=== PATIENT | female | born 1945 | race Caucasian/White ===

== ENCOUNTER → 2016-05-11 | Outpatient (CLI) | payer OTHER ==
[~2016-05-11] MED LIST: BONIVA1 MG/ML MR; CALCIUM PLUS1 TA1 PO; SYNTHROID 0.10.15 MG PO; SYNTHROID0.1 MG/TAB PO
[2016-05-11 11:49] LABS: HEMOGLOBIN 12.9 g/dl (12.5-16.0)
[2016-05-11 11:51] LABS: HEMATOCRIT 39.4 % (37.0-47.0)
== END ==
LOC: COL.LAB 04-13 13:16
PROVIDERS: Internal Medicine
DX: E83.110 Hereditary hemochromatosis (principal)

== ENCOUNTER → 2016-07-20 | Outpatient (CLI) | payer OTHER ==
[2016-07-20 13:48] LABS: HEMOGLOBIN 12.6 g/dl (12.5-16.0)
[2016-07-20 13:51] LABS: HEMATOCRIT 39.1 % (37.0-47.0)
[2016-07-20 14:22] LABS: TOTAL IRON BINDING CAPACITY 250 ug/dL (265-497)
[2016-07-20 15:02] LABS: FERRITIN 8 ng/mL (11-264)
== END ==
LOC: COL.LAB 13:08
PROVIDERS: Internal Medicine
DX: E83.118 Other hemochromatosis (principal)

== ENCOUNTER → 2016-12-06 | Outpatient (CLI) | payer OTHER ==
[2016-12-06 15:33] LABS: HEMOGLOBIN 14.8 g/dl (12.5-16.0)
[2016-12-06 15:41] LABS: HEMATOCRIT 42.7 % (37.0-47.0)
== END ==
LOC: COL.LAB 09-21 13:34
PROVIDERS: Internal Medicine
DX: E83.119 Hemochromatosis, unspecified (principal)

== ENCOUNTER → 2017-01-24 | Outpatient (CLI) | payer OTHER ==
[2017-01-24 09:25] LABS: HEMOGLOBIN 13.6 g/dl (12.5-16.0)
[2017-01-24 09:27] LABS: HEMATOCRIT 40.8 % (37.0-47.0)
== END ==
LOC: COL.LAB 08:58
PROVIDERS: Internal Medicine
DX: E83.110 Hereditary hemochromatosis (principal)

== ENCOUNTER → 2017-03-14 | Outpatient (CLI) | payer OTHER ==
[2017-03-14 14:39] LABS: HEMOGLOBIN 13.3 g/dl (12.5-16.0)
[2017-03-14 14:41] LABS: HEMATOCRIT 40.5 % (37.0-47.0)
== END ==
LOC: COL.LAB 03-07 15:40
PROVIDERS: Internal Medicine
DX: E83.110 Hereditary hemochromatosis (principal)

== ENCOUNTER → 2017-04-25 | Outpatient (CLI) | payer OTHER ==
[2017-04-25 15:35] LABS: HEMOGLOBIN 13.3 g/dl (12.5-16.0)
[2017-04-25 15:38] LABS: HEMATOCRIT 40.8 % (37.0-47.0)
== END ==
LOC: COL.LAB 12:33
PROVIDERS: Internal Medicine
DX: E83.110 Hereditary hemochromatosis (principal)

== ENCOUNTER → 2017-05-07 | Outpatient (REF) ==
[2017-05-07 19:02] LABS: THYROID STIMULATING HORMONE 0.045 uIU/mL (0.465-4.680)
== END ==
LOC: ZLAB.WCH 18:19
PROVIDERS: Internal Medicine
DX: Z01.89 Encounter for other specified special examinations (principal)

== ENCOUNTER → 2017-05-30 | Outpatient (CLI) | payer OTHER ==
[2017-05-30 13:46] LABS: HEMOGLOBIN 11.7 g/dl (12.5-16.0)
[2017-05-30 13:49] LABS: HEMATOCRIT 36.8 % (37.0-47.0)
== END ==
LOC: COL.LAB 13:12
PROVIDERS: Internal Medicine
DX: E83.119 Hemochromatosis, unspecified (principal); Z88.1 Allergy status to other antibiotic agents

== ENCOUNTER → 2017-06-29 | Outpatient (CLI) | payer MEDICARE ==
[2017-06-29 12:22] LABS: THYROXINE (T4)-TOTAL 12.6 ug/dL (5.5-11.0)
[2017-06-29 12:36] LABS: THYROID STIMULATING HORMONE 0.039 uIU/mL (0.465-4.680)
== END ==
LOC: COL.LAB 10:47
PROVIDERS: Internal Medicine
DX: E03.4 Atrophy of thyroid (acquired) (principal)

== ENCOUNTER → 2017-07-09 | Outpatient (CLI) | payer OTHER | LOC: MC.RAD 10:40 | DX: Z12.31 Encounter for screening mammogram for malignant neoplasm of breast (principal); M81.0 Age-related osteoporosis without current pathological fracture ==

== ENCOUNTER → 2017-08-28 | Outpatient (CLI) | payer OTHER ==
[2017-08-28 11:26] LABS: THYROID STIMULATING HORMONE 0.145 uIU/mL (0.465-4.680)
== END ==
LOC: COL.LAB 09:46
PROVIDERS: Internal Medicine
DX: E03.4 Atrophy of thyroid (acquired) (principal)

== ENCOUNTER → 2017-09-05 | Outpatient (CLI) | payer OTHER ==
[2017-09-05 14:46] LABS: HEMOGLOBIN 12.1 g/dl (12.5-16.0)
[2017-09-05 15:07] LABS: IRON,SERUM 44 ug/dL (35-150)
[2017-09-05 15:16] LABS: TOTAL IRON BINDING CAPACITY 271 ug/dL (265-497)
[2017-09-05 15:41] LABS: FERRITIN 9 ng/mL (11-264)
== END ==
LOC: COL.LAB 07-11 11:45
PROVIDERS: Internal Medicine
DX: E83.110 Hereditary hemochromatosis (principal)

== ENCOUNTER → 2017-11-07 | Outpatient (CLI) | payer MEDICARE ==
[2017-11-07 18:12] LABS: THYROID STIMULATING HORMONE 0.723 uIU/mL (0.465-4.680)
== END ==
LOC: COL.LAB 16:46
PROVIDERS: Internal Medicine
DX: E83.110 Hereditary hemochromatosis (principal); E03.4 Atrophy of thyroid (acquired)

== ENCOUNTER → 2017-12-05 | Outpatient (CLI) | payer MEDICARE | LOC: COL.LAB 10-17 17:58 | DX: E83.110 Hereditary hemochromatosis (principal) ==

== ENCOUNTER → 2018-01-02 | Outpatient (REF) | LOC: ZLAB.WCH 08:44 | DX: Z01.89 Encounter for other specified special examinations (principal) ==

== ENCOUNTER → 2018-02-12 | Outpatient (REF) | LOC: ZLAB.WCH 16:55 | DX: Z01.89 Encounter for other specified special examinations (principal) ==

== ENCOUNTER → 2018-04-16 | Outpatient (REF) ==
[2018-04-16 18:22] LABS: THYROID STIMULATING HORMONE 0.422 uIU/mL (0.465-4.680)
== END ==
LOC: ZLAB.WCH 17:05
PROVIDERS: Internal Medicine
DX: Z01.89 Encounter for other specified special examinations (principal)

== ENCOUNTER → 2018-06-07 | Outpatient (REF) ==
[2018-06-07 20:05] LABS: THYROID STIMULATING HORMONE 1.63 uIU/mL (0.465-4.680)
== END ==
LOC: ZLAB.WCH 19:16
PROVIDERS: Internal Medicine
DX: Z01.89 Encounter for other specified special examinations (principal)

== ENCOUNTER → 2018-07-24 | Outpatient (REF) ==
[2018-07-24 09:57] LABS: IRON,SERUM 76 ug/dL (35-150)
[2018-07-24 10:06] LABS: TOTAL IRON BINDING CAPACITY 256 ug/dL (265-497)
[2018-07-24 10:33] LABS: FERRITIN 9 ng/mL (11-264)
== END ==
LOC: ZLAB.WCH 09:41
PROVIDERS: Internal Medicine
DX: Z01.89 Encounter for other specified special examinations (principal)

== ENCOUNTER 2018-11-23 18:13 | Emergency (ER) | payer MEDICARE ==
[~2018-11-23] VITALS: Ht 172.7 cm; Wt 83.2 kg
[2018-11-23 18:22] VITALS: TEMP 98.4
[2018-11-23] MEDS ORDERED: NORCO 325 MG-51 TAB PO (20:10)
[2018-11-23 20:31] VITALS: BP 168/68; PULSE 62
== END 2018-11-23 20:41 | disposition home or self-care (01) ==
LOC: COL.ER 18:13
DX: S59.901A Unspecified injury of right elbow, initial encounter (principal); S52.101A Unspecified fracture of upper end of right radius, initial encounter for closed fracture; S52.001A Unspecified fracture of upper end of right ulna, initial encounter for closed fracture; Z23 Encounter for immunization; W19.XXXA Unspecified fall, initial encounter; Y92.009 Unspecified place in unspecified non-institutional (private) residence as the place of occurrence of the external cause
CPT/HCPCS: J2405; J3010; Q4050

== ENCOUNTER → 2018-12-02 | Outpatient (CLI) | payer MEDICARE ==
[~2018-12-02] MED LIST changes: +NORCO 325 MG-51 TAB PO
== END ==
LOC: COL.RAD 15:00
DX: S52.501A Unspecified fracture of the lower end of right radius, initial encounter for closed fracture (principal); S52.601A Unspecified fracture of lower end of right ulna, initial encounter for closed fracture

== ENCOUNTER 2019-02-01 08:32 | Outpatient (RCR) | payer MEDICARE ==
[2019-01-10 09:40] VITALS: BP 181/89; PULSE 79; TEMP 97.7
--- NOTE | 2019-01-10 09:45 | NUR ---
patient in the express unit. Patient has a PICC in her left upper arm. Dressing dated 01/06. Patient reported PICC placed when she was a patient in [place]. with sterile technique left upper arm PICC dressing change done with insertion site cleansed with ChloraPrep 1, chlorhexidine impregnated disc applied, skin prep, StatLock, and Tegaderm applied. No signs or symptoms of IV complications noted. No concerns voiced. Arm wrapped with Williams to protect catheter. Patient is receiving outpatient IV antibiotics in the express unit. We'll continue to monitor PICC.
[2019-01-11 08:30] VITALS: BP 172/93; PULSE 86; TEMP 98.1
[2019-01-12 08:34] VITALS: BP 150/86; PULSE 94; TEMP 97.6
[2019-01-13 09:32] VITALS: BP 154/76; PULSE 80; TEMP 98.1
[2019-01-13 09:52] LABS: BASO % 0.7 % (0.0-2.0); EOS # 0.2 (0.0-0.7); EOS % 4.1 % (0-4.0); GRAN # 3.8 (1.4-6.5); GRAN % 67.2 % (42.2-75.2); LYMPH # 1.1 (1.2-3.4); LYMPH % 19.6 % (20.0-51.0); MEAN CELL VOLUME 86 fl (80.0-100.0); MEAN CORPUSCULAR HGB CONC 32 g/dl (33.0-37.0); MEAN PLATELET VOLUME 9.7 fl (7.4-10.4); MONO # 0.5 (0.1-0.6); PLATELET COUNT 233 K/mm3 (130-400); REDCELL DISTRIBUTION WIDTH-CV 15.5 % (11.5-14.5)
[2019-01-13 09:57] LABS: ALBUMIN 3.5 gm/dL (3.5-5.0); BILIRUBIN,TOTAL 0.1 mg/dL (0.0-1.0); C-REACTIVE PROTEIN 2.3 mg/dL (0.0-0.9); CALCIUM 9.4 mg/dL (8.4-10.2); CREATININE, serum 0.6 (0.52-1.25); POTASSIUM 4.3 mmol/L (3.4-5.0)
[2019-01-13 10:23] LABS: HEMATOCRIT 29.2 % (37.0-47.0); HEMOGLOBIN 9.3 g/dl (12.5-16.0); MEAN CORPUSCULAR HEMOGLOBIN 27 pg (27.0-31.0)
[2019-01-13 10:43] LABS: ERYTHROCYTE SEDIMENTATION RATE 90 mm/hr (0-30)
[2019-01-14 08:30] VITALS: BP 173/90; PULSE 83; TEMP 98.2
[2019-01-15 09:06] VITALS: BP 152/91; PULSE 80; TEMP 97.6
[2019-01-16 08:21] VITALS: BP 150/92; PULSE 83; TEMP 97.5
[2019-01-17 08:15] VITALS: BP 173/91; PULSE 79; TEMP 97.5
--- NOTE | 2019-01-17 08:15 | NUR ---
PICC intact left upper arm with sterile dressing change with insertion site cleansed with chloraprep x 1, chlorhexidine impregnated disk applied, skin prep, stat lock, and tegaderm applied. no signs or symptoms of IV complications noted. no concerns voiced. re-wrapped with merle to protect catheter.
[2019-01-18 08:15] VITALS: BP 166/83; PULSE 80; TEMP 97.6
[2019-01-19 09:36] VITALS: BP 152/84; PULSE 86; TEMP 97.4
[2019-01-20 06:30] VITALS: BP 172/91; PULSE 75; TEMP 97.9
[2019-01-20 07:11] LABS: BASO # 0.1 (0.0-0.2); BASO % 1.1 % (0.0-2.0); EOS # 0.3 (0.0-0.7); EOS % 5.6 % (0-4.0); GRAN # 3.7 (1.4-6.5); GRAN % 64.2 % (42.2-75.2); LYMPH # 1.3 (1.2-3.4); MEAN CELL VOLUME 86 fl (80.0-100.0); MEAN CORPUSCULAR HGB CONC 31 g/dl (33.0-37.0); MEAN PLATELET VOLUME 9.9 fl (7.4-10.4); MONO # 0.4 (0.1-0.6); MONO % 6.7 % (1.7-9.3); PLATELET COUNT 250 K/mm3 (130-400); RED BLOOD COUNT 3.61 M/mm3 (4.10-5.30)
[2019-01-20 07:15] LABS: HEMATOCRIT 31.2 % (37.0-47.0); HEMOGLOBIN 9.8 g/dl (12.5-16.0); MEAN CORPUSCULAR HEMOGLOBIN 27 pg (27.0-31.0)
[2019-01-20 07:21] LABS: ALANINE AMINOTRANSFERASE 31 U/L (9-52); ALBUMIN 3.6 gm/dL (3.5-5.0); ALKALINE PHOSPHATASE 141 U/L (50-136); ANION GAP 8 mmol/L (7-16); AST,SGOT 23 U/L (15-37); BILIRUBIN,TOTAL 0.2 mg/dL (0.0-1.0); BLOOD UREA NITROGEN 13 mg/dL (7-17); CALCIUM 9.7 mg/dL (8.4-10.2); CARBON DIOXIDE 27 mmol/L (22-30); CHLORIDE 101 mmol/L (98-107); CREATININE, serum 0.54 (0.52-1.25); GLUCOSE 118 mg/dL (74-106); POTASSIUM 4.2 mmol/L (3.4-5.0); SODIUM 137 mmol/L (137-145); TOTAL PROTEIN 6.9 gm/dL (6.4-8.2)
[2019-01-20 07:25] LABS: C-REACTIVE PROTEIN 1.5 mg/dL (0.0-0.9)
[2019-01-20 07:44] LABS: ERYTHROCYTE SEDIMENTATION RATE 73 mm/hr (0-30)
[2019-01-20 07:52] LABS: VANCOMYCIN TROUGH < 5.00 ug/mL (7.00-20.00)
--- NOTE | 2019-01-20 17:29 | NUR ---
Pt's had asked this am about having dressing change incorporated into pt's care while at express for antibiotics. I called pt to address this... I informed Grecia that we could do her daily dressing change provided it was a simple dressing change, and that we would need a physician order. Pt reports she will be seeing her orthopedic surgeon tomorrow, and will discuss with her and the surgeon tomorrow.
[2019-01-21 08:33] VITALS: BP 166/84; PULSE 85; TEMP 97.6
[2019-01-22 08:21] VITALS: BP 166/89; PULSE 85; TEMP 98.1
[2019-01-23 08:30] VITALS: BP 168/97; PULSE 84; TEMP 97.4
[2019-01-24 08:29] VITALS: BP 155/85; PULSE 78; TEMP 97.8
--- NOTE | 2019-01-24 08:40 | NUR ---
PICC intact left upper arm. With sterile technique left upper arm PICC dressing changes done with insertion site cleansed with ChloraPrep 1, chlorhexidine impregnated disc applied, skin prep, StatLock, and Tegaderm applied. No signs or symptoms of IV complications noted. No concerns voiced. Patient to continue with [facility] unit.
[2019-01-25 08:30] VITALS: BP 157/81; PULSE 82; TEMP 98.2
[2019-01-26 08:36] VITALS: BP 165/80; PULSE 81; TEMP 98.3
[2019-01-27 08:38] VITALS: BP 164/88; PULSE 87; TEMP 98.2
[2019-01-27 08:53] LABS: BASO # 0.1 (0.0-0.2); BASO % 0.7 % (0.0-2.0); EOS # 0.4 (0.0-0.7); EOS % 5.3 % (0-4.0); GRAN # 5.2 (1.4-6.5); GRAN % 67.9 % (42.2-75.2); LYMPH # 1.4 (1.2-3.4); LYMPH % 18.2 % (20.0-51.0); MEAN CELL VOLUME 83 fl (80.0-100.0); MEAN CORPUSCULAR HGB CONC 32 g/dl (33.0-37.0); MEAN PLATELET VOLUME 9.7 fl (7.4-10.4); MONO # 0.6 (0.1-0.6); MONO % 7.5 % (1.7-9.3); PLATELET COUNT 243 K/mm3 (130-400); RED BLOOD COUNT 3.71 M/mm3 (4.10-5.30); REDCELL DISTRIBUTION WIDTH-CV 14.9 % (11.5-14.5)
[2019-01-27 09:20] LABS: ALBUMIN 3.9 gm/dL (3.5-5.0); BILIRUBIN,TOTAL 0.1 mg/dL (0.0-1.0); CALCIUM 9.8 mg/dL (8.4-10.2); CREATININE, serum 0.55 (0.52-1.25); POTASSIUM 3.9 mmol/L (3.4-5.0); TOTAL PROTEIN 7.8 gm/dL (6.4-8.2)
[2019-01-27 09:24] LABS: HEMATOCRIT 30.9 % (37.0-47.0); HEMOGLOBIN 9.8 g/dl (12.5-16.0); MEAN CORPUSCULAR HEMOGLOBIN 26 pg (27.0-31.0)
[2019-01-27 09:55] LABS: ERYTHROCYTE SEDIMENTATION RATE 59 mm/hr (0-30)
[2019-01-28 08:28] VITALS: BP 170/77; PULSE 73; TEMP 98.1
[2019-01-29 08:30] VITALS: BP 176/85; PULSE 84; TEMP 98.2
--- NOTE | 2019-01-29 08:30 | NUR ---
reported by primary care nurse unable to obtain blood return from left upper arm PICC. Left upper arm PICC intact. Flushed both ports with 30 mL normal saline without difficulty or resistance with no blood return noted. Attempted arm manipulation and coughing technique without success. Chest x-ray done. Catheter tip location noted in upper SVC. Risk versus benefit of sterile exchange contemplated. Due to the fact the patient only has 2-3 weeks of IV antibiotics left we will leave tip location as is for now. We'll continue to monitor. Primary care nurse informed.
[2019-01-30 08:21] VITALS: BP 160/69; PULSE 89; TEMP 97.4
--- NOTE | 2019-01-31 08:30 | NUR ---
PICC intact left upper arm. With sterile technique left upper arm PICC dressing change done with insertion site cleansed with ChloraPrep 1, chlorhexidine impregnated disc applied, skin prep, StatLock, and Tegaderm applied. No signs or symptoms of IV complications noted. No concerns voiced. Arm wrapped with Williams to protect catheter.
[2019-01-31 08:45] VITALS: BP 159/104; PULSE 97; TEMP 97.9
[~2019-02-01] VITALS: Ht 172.7 cm; Wt 87.0 kg
[~2019-02-01 08:32] MED LIST changes: +COLACE 100100 MG/CAP PO; +CUBICIN 500MG500 MG IV; +LOPRESSOR 225 MG/TAB PO; +MILK OF MA1200 MG/5 PO; +MIRALAX PA17 GM/Dose PO; +MULTI VITAMINS1 TAB PO; +RIFADIN300 MG PO; +SYNTHROID0.125 MG/T PO; +TYLENOL 325MG325 MG PO; +XALATAN EYE DROPS OU; +ZYRTEC 10MG10 MG PO
--- NOTE | 2019-02-03 08:28 | NUR ---
Pt c/o of rash continuing up left leg yesterday. States it appears better today and itching has improved. Left message with Dr García's nurse to call back before antibiotic medication administered.
[2019-02-03 08:55] VITALS: BP 175/88; PULSE 86; TEMP 97.9
--- NOTE | 2019-02-03 08:58 | NUR ---
Left message with Estella SHAY with Dr García. Pt c/o rash getting worse after Rifampin dc'd last week. Pt also c/o some SOB at home, PINA and a cough. Blood drawn for labs, sent to Lab.
[2019-02-03 09:03] LABS: BASO % 0.4 % (0.0-2.0); EOS # 0.4 (0.0-0.7); EOS % 5.2 % (0-4.0); GRAN # 5.1 (1.4-6.5); GRAN % 69.6 % (42.2-75.2); LYMPH # 1.3 (1.2-3.4); LYMPH % 17.2 % (20.0-51.0); MEAN CELL VOLUME 83 fl (80.0-100.0); MEAN CORPUSCULAR HGB CONC 31 g/dl (33.0-37.0); MEAN PLATELET VOLUME 10.8 fl (7.4-10.4); MONO # 0.5 (0.1-0.6); MONO % 7.2 % (1.7-9.3); PLATELET COUNT 144 K/mm3 (130-400); RED BLOOD COUNT 3.64 M/mm3 (4.10-5.30); REDCELL DISTRIBUTION WIDTH-CV 14.8 % (11.5-14.5)
[2019-02-03 09:23] LABS: ALBUMIN 3.8 gm/dL (3.5-5.0); BILIRUBIN,TOTAL 0.2 mg/dL (0.0-1.0); C-REACTIVE PROTEIN 3.2 mg/dL (0.0-0.9); CALCIUM 9.6 mg/dL (8.4-10.2); CREATININE, serum 0.56 (0.52-1.25); POTASSIUM 4.1 mmol/L (3.4-5.0); TOTAL PROTEIN 7.8 gm/dL (6.4-8.2)
--- NOTE | 2019-02-03 09:25 | NUR ---
LAURITA Soria called back. Updated on pt status. Will talk to DR García and call back.
[2019-02-03 09:31] LABS: HEMATOCRIT 30.1 % (37.0-47.0); HEMOGLOBIN 9.4 g/dl (12.5-16.0); MEAN CORPUSCULAR HEMOGLOBIN 26 pg (27.0-31.0)
--- NOTE | 2019-02-03 09:50 | NUR ---
Estella SHAY called back afer talking with Dr García. Will hold Daptomycin dose today. Pt has scheduled appointment tomorrow to see Doctor in [place].
[2019-02-03 10:06] LABS: ERYTHROCYTE SEDIMENTATION RATE 81 mm/hr (0-30)
[2019-02-05 10:43] VITALS: BP 160/83; PULSE 79; TEMP 97.5
--- NOTE | 2019-02-05 11:15 | NUR ---
YASEMIN PICC removal site remains soft, C/D/I. Pt discharged per ambulation with .
== END 2019-02-05 14:17 | disposition home or self-care (01) ==
LOC: EUO 02-02 08:04
PROVIDERS: Internal Medicine; Internal Medicine Infectious Disease
DX: T81.49XD Infection following a procedure, other surgical site, subsequent encounter (principal); M89.8X8 Other specified disorders of bone, other site; Z95.9 Presence of cardiac and vascular implant and graft, unspecified
CPT/HCPCS: J0878; J1644

== ENCOUNTER → 2019-02-14 | Outpatient (CLI) | payer MEDICARE ==
[2019-02-14 17:07] LABS: BASO # 0.1 (0.0-0.2); BASO % 0.7 % (0.0-2.0); EOS # 0.3 (0.0-0.7); EOS % 3.7 % (0-4.0); GRAN % 67.2 % (42.2-75.2); LYMPH # 1.6 (1.2-3.4); LYMPH % 21.4 % (20.0-51.0); MEAN CELL VOLUME 83 fl (80.0-100.0); MEAN CORPUSCULAR HGB CONC 31 g/dl (33.0-37.0); MEAN PLATELET VOLUME 9.6 fl (7.4-10.4); MONO # 0.5 (0.1-0.6); MONO % 6.7 % (1.7-9.3); PLATELET COUNT 234 K/mm3 (130-400); RED BLOOD COUNT 3.76 M/mm3 (4.10-5.30); REDCELL DISTRIBUTION WIDTH-CV 15.6 % (11.5-14.5)
[2019-02-14 17:18] LABS: ALANINE AMINOTRANSFERASE 22 U/L (9-52); ALKALINE PHOSPHATASE 94 U/L (50-136); ANION GAP 7 mmol/L (7-16); AST,SGOT 32 U/L (15-37); BILIRUBIN,TOTAL 0.2 mg/dL (0.0-1.0); BLOOD UREA NITROGEN 27 mg/dL (7-17); CALCIUM 9.5 mg/dL (8.4-10.2); CARBON DIOXIDE 27 mmol/L (22-30); CHLORIDE 100 mmol/L (98-107); CREATININE, serum 0.72 (0.52-1.25); GLUCOSE 128 mg/dL (74-106); POTASSIUM 4.1 mmol/L (3.4-5.0); SODIUM 135 mmol/L (137-145); TOTAL PROTEIN 8.1 gm/dL (6.4-8.2)
[2019-02-14 17:20] LABS: HEMATOCRIT 31.2 % (37.0-47.0); HEMOGLOBIN 9.8 g/dl (12.5-16.0); MEAN CORPUSCULAR HEMOGLOBIN 26 pg (27.0-31.0)
[2019-02-14 17:21] LABS: C-REACTIVE PROTEIN < 0.5 mg/dL (0.0-0.9)
[2019-02-14 17:35] LABS: ERYTHROCYTE SEDIMENTATION RATE 65 mm/hr (0-30)
== END ==
LOC: COL.LAB 16:41
PROVIDERS: Internal Medicine
DX: Z22.322 Carrier or suspected carrier of Methicillin resistant Staphylococcus aureus (principal); M00.9 Pyogenic arthritis, unspecified

== ENCOUNTER → 2019-03-13 | Outpatient (CLI) | payer MEDICARE | LOC: ZCOL.LAB 15:22 | DX: T81.49XA Infection following a procedure, other surgical site, initial encounter (principal); A49.02 Methicillin resistant Staphylococcus aureus infection, unspecified site ==

== ENCOUNTER → 2019-03-14 | Outpatient (CLI) | payer MEDICARE ==
[2019-03-14 11:52] LABS: BASO % 0.7 % (0.0-2.0); EOS # 0.1 (0.0-0.7); EOS % 1.7 % (0-4.0); GRAN # 3.7 (1.4-6.5); GRAN % 67.7 % (42.2-75.2); HEMOGLOBIN 11.3 g/dl (12.5-16.0); LYMPH # 1.3 (1.2-3.4); LYMPH % 23.1 % (20.0-51.0); MEAN CELL VOLUME 83 fl (80.0-100.0); MEAN CORPUSCULAR HEMOGLOBIN 26 pg (27.0-31.0); MEAN CORPUSCULAR HGB CONC 31 g/dl (33.0-37.0); MEAN PLATELET VOLUME 10.7 fl (7.4-10.4); MONO # 0.4 (0.1-0.6); MONO % 6.6 % (1.7-9.3); PLATELET COUNT 223 K/mm3 (130-400); RED BLOOD COUNT 4.43 M/mm3 (4.10-5.30); REDCELL DISTRIBUTION WIDTH-CV 16.6 % (11.5-14.5)
[2019-03-14 11:54] LABS: HEMATOCRIT 36.7 % (37.0-47.0)
[2019-03-14 12:10] LABS: ALANINE AMINOTRANSFERASE 29 U/L (9-52); ALBUMIN 4.1 gm/dL (3.5-5.0); ALKALINE PHOSPHATASE 99 U/L (50-136); ANION GAP 7 mmol/L (7-16); AST,SGOT 30 U/L (15-37); BILIRUBIN,TOTAL 0.2 mg/dL (0.0-1.0); BLOOD UREA NITROGEN 23 mg/dL (7-17); CALCIUM 9.8 mg/dL (8.4-10.2); CARBON DIOXIDE 29 mmol/L (22-30); CHLORIDE 100 mmol/L (98-107); CREATININE, serum 0.74 (0.52-1.25); GLUCOSE 88 mg/dL (74-106); POTASSIUM 4.3 mmol/L (3.4-5.0); SODIUM 136 mmol/L (137-145); TOTAL PROTEIN 7.9 gm/dL (6.4-8.2)
[2019-03-14 12:13] LABS: C-REACTIVE PROTEIN < 0.5 mg/dL (0.0-0.9)
[2019-03-14 14:14] LABS: ERYTHROCYTE SEDIMENTATION RATE 26 mm/hr (0-30)
== END ==
LOC: COL.LAB 10:30
PROVIDERS: Nurse Practitioner
DX: T81.49XA Infection following a procedure, other surgical site, initial encounter (principal); A49.02 Methicillin resistant Staphylococcus aureus infection, unspecified site

== ENCOUNTER → 2019-04-08 | Outpatient (CLI) | payer MEDICARE | LOC: COL.RAD 09:10 | DX: R10.11 Right upper quadrant pain (principal) ==

== ENCOUNTER → 2019-06-20 | Outpatient (CLI) | payer MEDICARE | LOC: COL.RAD 06:28 | DX: R10.11 Right upper quadrant pain (principal) | CPT/HCPCS: A9537; J2805 ==

== ENCOUNTER → 2019-12-11 | Outpatient (CLI) | payer MEDICARE | LOC: MC.RAD 13:30 | DX: Z12.31 Encounter for screening mammogram for malignant neoplasm of breast (principal) ==

== ENCOUNTER → 2019-12-25 | Outpatient (CLI) | payer MEDICARE | LOC: ZCOL.LAB 19:26 | DX: Z01.89 Encounter for other specified special examinations (principal) ==

== ENCOUNTER → 2023-05-07 | Outpatient (CLI) | payer MEDICARE | LOC: MC.RAD 15:00 | DX: Z12.31 Encounter for screening mammogram for malignant neoplasm of breast (principal) ==